=== PATIENT | female | born 1955 | race Caucasian/White ===

== ENCOUNTER → 2019-08-03 11:29 | Outpatient (CLI) | payer MEDICARE ==
[2019-08-03 12:00] LABS: BASOPHILS 0.2 % (0-2); EOSINOPHILS 1.5 % (0-7); HEMOGLOBIN 13.4 g/dL (12-16); IMMATURE GRANULOCYTES 0.5 % (0-5); LYMPHOCYTES 32.5 % (15-50); MCH 29.3 pg (26.0-34.0); MCHC 31.9 g/dL (31.0-37.0); MCV 91.9 fL (80.0-100.0); MEAN PLATELET VOLUME 9.9 fL (7.4-10.4); MONOCYTES 6.8 % (2-11); NEUTROPHILS 58.5 % (40-80); PLATELET COUNT 250 10x3/uL (130-400); RBC 4.57 10x6/uL (4.00-5.40); RDW 13.9 % (11.5-14.5); WBC 8.7 10x3/uL (4.8-10.8)
[2019-08-03 12:10] LABS: ALBUMIN 3.9 g/dL (3.4-5.0); ALKALINE PHOSPHATASE 107 U/L (30-120); ALT (SGPT) 65 U/L (10-68); BILIRUBIN - TOTAL 0.97 mg/dL (0.2-1.3); CALC OSMOLALITY 274 mosm/kg (275-300); CALCIUM 8.5 mg/dL (8.5-10.1); CARBON DIOXIDE 22.9 mmol/L (21.0-32.0); CHLORIDE - SERUM 103 mmol/L (98-107); CREATININE - SERUM 0.6 mg/dL (0.6-1.3); GLUCOSE 152 mg/dL (74-106); LDH 251 U/L (81-234); POTASSIUM - SERUM 4.3 mmol/L (3.5-5.1); SODIUM 136 mmol/L (136-145); UREA NITROGEN 12 mg/dL (7-18); eGFR NON AFRICAN AMERICAN > 90 mL/min (90-120)
== END | disposition home or self-care (01) ==
LOC: D.LABREF 11:29
PROVIDERS: ATTEND Internal Medicine Hematology & Oncology
DX: C18.2 Malignant neoplasm of ascending colon (principal); I10 Essential (primary) hypertension